=== PATIENT | male | born 1985 | race Caucasian/White ===

== ENCOUNTER 2020-08-01 17:07 | Emergency (ER) | payer MEDICAID ==
[~2020-08-01] VITALS: Ht 167.6 cm; Wt 67.3 kg
[2020-08-01] MEDS ORDERED: DOXY-354 PO (17:35)
[2020-08-01] MEDS ORDERED: IBUP-2070 PO (17:35)
[2020-08-01] MEDS ORDERED: DOXY100C40 PO (17:40)
[2020-08-01] MEDS ORDERED: LIDOCAINE 1% 10 ML VIAL INJ ONE (22:15)
[2020-08-01 23:00] VITALS: BP 116/74
[2020-08-01] MEDS ORDERED: IBUPROFEN 600 MG TABLET PO ONE (23:00)
== END 2020-08-02 01:57 | disposition home or self-care (01) ==
LOC: EMS 17:07
DX: L02.415 Cutaneous abscess of right lower limb (principal); L03.115 Cellulitis of right lower limb; Z79.899 Other long term (current) drug therapy; Z88.0 Allergy status to penicillin
CPT/HCPCS: 10060; 73610; 87070; 99284; J3490

== ENCOUNTER 2020-08-04 13:38 | Emergency (ER) | payer MEDICAID ==
[~2020-08-04] VITALS: Ht 167.6 cm; Wt 61.4 kg
[~2020-08-04 13:38] MED LIST: DOXY100C40 PO; IBUP-2070 PO
[2020-08-04 15:35] VITALS: BP 138/70
== END 2020-08-04 15:55 | disposition home or self-care (01) ==
LOC: EMS 14:05
DX: L03.115 Cellulitis of right lower limb (principal); Z88.0 Allergy status to penicillin
CPT/HCPCS: 99283; Z7502